=== PATIENT | female | born 1950 | race Caucasian/White ===

== ENCOUNTER 2025-09-20 15:46 | Outpatient (CLI) | payer MEDICARE, SELFPAY ==
--- NOTE | 2025-09-20 14:45 | DI.RAD_ITS ---
Exam(s) XR PELVIS AP EXAM: XR PELVIS AP CLINICAL HISTORY: THR Planning. TECHNIQUE: 2D digital imaging was performed. COMPARISON: CR XR LS SPINE 2-3 VIEWS from 06/14/2025 FINDINGS: Single AP view of the pelvis-hips reveals no evidence of fractures. Again noted is severe advanced osteoarthritic degenerative change in the right hip with [id number] narrowing and degenerative subarticular cysts in the right femoral head again noted. There also significant degenerative changes in the opposite-left hip but less than is evident on the right side. IMPRESSION: Severe osteoarthritic degenerative changes in the right hip. Moderate osteoarthritic degenerative changes in the left hip No fractures. No osseous lesions. DATA REPOSITORY: RADIATION DOSE DELIVERED:
== END 2025-09-20 15:47 | disposition home or self-care (01) ==
LOC: DIORS 15:46
PROVIDERS: PCP Family Medicine; Referring Provider Family Medicine; Visit Provider Student in an Organized Health Care Education/Training Program
DX: M16.11 Unilateral primary osteoarthritis, right hip (principal)
CPT/HCPCS: 99204; 72170

== ENCOUNTER → 2025-11-01 14:08 | Outpatient (BNVA) | payer MEDICARE, SELFPAY | PROVIDERS: PCP Family Medicine; Referring Provider Family Medicine; Visit Provider Physician Assistant | DX: Z01.818 Encounter for other preprocedural examination (principal); M16.11 Unilateral primary osteoarthritis, right hip | CPT/HCPCS: 99024 ==

== ENCOUNTER 2025-11-03 07:53 | Day surgery (SDC) | payer MEDICARE, SELFPAY ==
[2025-11-03] VITALS (29 sets, daily range): BP systolic 91–144; BP diastolic 24–62; PULSE 50–57; RESP 11–19; TEMP 36–36.6; O2SAT 93–99; BMI 37.0
[2025-11-03] MEDS: Celecoxib 200 MG CAP 400 MG PO (09:07)
[2025-11-03] MEDS: Acetaminophen 500 MG TAB 1000 MG PO (09:07)
[2025-11-03 09:09] LABS: HCT 39.1 % (36.0-46.0); HGB 13.0 g/dL (11.2-15.7); MCH 29.1 pg (27.0-33.0); MCHC 33.2 % (32.0-36.0); MCV 88 fL (80-95); MPV 10.1 fL (8.0-11.0); Platelet Count 141 10^3/uL (130-400); RBC 4.46 10^6/uL (3.93-5.22); RDW 13.5 % (11.7-14.6); RDW-SD 43.0 fL; WBC 4.45 10^3/uL (4.4-10.8)
--- NOTE | 2025-11-03 09:13 | W.ANESPRE ---
General Info Date of Service Date Performed: 11/03/25 Height: 5 ft 2 in Weight: 92 kg Body Mass Index (BMI): 37.0 Surgical Procedure: Operation Date: 11/03/25 10:50 Proposed Procedure Side Surgeon p Hip Total Hip Anterior Right Dima Justice MD Meds Allergies and Home Medications Allergies Allergy/AdvReac Type Severity Reaction Status Date / Time Penicillins Allergy URTICARIA Verified 11/03/25 08:55 Home Medication ?Medication ?Instructions ?Recorded amlodipine 2.5 mg tablet 2.5 mg PO DAILY 07/02/25 aspirin 81 mg tablet 81 mg PO DAILY 07/02/25 glipizide 10 mg tablet 10 mg PO DAILY 07/02/25 hydrochlorothiazide 25 mg tablet 25 mg PO DAILY 07/02/25 lisinopril 20 mg tablet 20 mg PO DAILY 07/02/25 lovastatin 40 mg tablet 40 mg PO DAILY 07/02/25 metformin 500 mg tablet 1,000 mg PO BID 07/02/25 metoprolol succinate 50 mg 50 mg PO DAILY 07/02/25 tablet,extended release 24 hr pantoprazole 40 mg tablet,delayed 40 mg PO DAILY 07/02/25 release semaglutide 1 mg/dose (4 mg/3 mL) 1 mg subcut QWEEK 07/02/25 subcutaneous pen injector (Ozempic) sertraline 50 mg tablet 50 mg PO DAILY 07/02/25 meloxicam 15 mg tablet 15 mg PO DAILY 11/02/25 Current Visit Medications: Current Medications Generic Name Dose Route Start Last Admin Trade Name Freq PRN Reason Stop Dose Admin Acetaminophen 1,000 mg 11/03/25 06:00 Acetaminophen 500 Mg Tab PO 11/03/25 23:59 PREOP BLAYNE Acetaminophen 1,000 mg 11/03/25 07:25 11/03/25 09:07 Acetaminophen 500 Mg Tab PO 12/03/25 07:24 1,000 mg TID PRN PRN Administration Analgesia Celecoxib 400 mg 11/03/25 06:00 11/03/25 09:07 Celecoxib 200 Mg Cap PO 11/03/25 23:59 400 mg PREOP BLAYNE Administration Docusate Sodium 100 mg 11/03/25 07:25 Docusate Sodium 100 Mg Cap PO 12/03/25 07:24 BID PRN PRN Constipation Ringer's Solution 1,000 mls @ 80 mls/hr 11/03/25 06:00 IV 11/03/25 23:59 INFUSION BLAYNE Cefazolin Sodium/Dextrose 2 gm in 50 mls @ 100 mls/hr 11/03/25 06:00 Ancef Duplex IVPB 11/03/25 23:59 PREOP BLAYNE Tranexamic Acid/Sodium Chloride 1,000 mg in 100 mls @ 600 mls/hr 11/03/25 06:00 IVPB 11/03/25 23:59 PREOP BLAYNE Ondansetron HCl 4 mg 11/03/25 07:25 Ondansetron 4 Mg/2 Ml Vial IVP 12/03/25 07:24 Q6H PRN PRN Nausea Oxycodone HCl 0 mg 11/03/25 07:25 Oxycodone 5 Mg Tab PO 12/03/25 07:24 Q3H PRN PRN Pain Polyethylene Glycol 17 gm 11/03/25 07:25 Polyethylene Glycol 3350 17 Gm Packet PO 12/03/25 07:24 BID PRN PRN Constipation Sodium Chloride 0 ml 11/03/25 06:00 Normal Saline Flush 10 Ml Syr IV 11/03/25 23:59 PRN PRN Sodium Chloride 0 ml 11/03/25 06:00 Normal Saline 10 Ml Vial IJ 11/03/25 23:59 DIRECTED PRN Sterile Water 0 ml 11/03/25 06:00 Water,Injection,Sterile 10 Ml Vial IJ 11/03/25 23:59 DIRECTED PRN PFSH Active Problems Active Problems: Problem Status Onset Code History of total right hip replacement Acute Z96.641 Type 2 diabetes mellitus Acute E11.9 YOGESH (obstructive sleep apnea) Chronic G47.33 Obesity Chronic E66.9 Nicotine dependence Acute F17.200 Mixed hyperlipidemia Acute E78.2 GERD (gastroesophageal reflux disease) Chronic K21.9 Depressive disorder Chronic F32.A Benign essential hypertension Acute I10 Arteriosclerotic vascular disease Acute I70.90 Surgical History Surgical History (Updated 11/03/25 @ 08:36 by Brianne Marte RN) History of cataract extraction History of bladder suspension procedure History of tonsillectomy History of appendectomy History of total hysterectomy History of left breast biopsy Tobacco Smoking/Tobacco Use Status: Current every day Tobacco Type: e-cigarettes Passive smoking exposure: Yes Alcohol Alcohol Intake: current Alcohol intake frequency: holidays/special occasions only Substance Use Substance use: Never Substance use type: does not use Details: 11/03/25: vaped this morning Vital Signs and Lab Results Vital Signs Most Recent Vital Signs in EMR: Most Recent Vital Signs Temp Pulse Resp BP Pulse Ox 36 C L 54 L 14 144/62 H 98 11/03/25 08:46 11/03/25 08:46 11/03/25 08:46 11/03/25 08:46 11/03/25 08:46 Lab Results 11/03/25 08:50 Complete Blood Count: WBC, (4.4-10.8) 4.45 10^3/uL Today, 08:50 RBC, (3.93-5.22) 4.46 10^6/uL Today, 08:50 Hgb, (11.2-15.7) 13.0 g/dL Today, 08:50 Hct, (36.0-46.0) 39.1 % Today, 08:50 Plt Count, (130-400) 141 10^3/uL Today, 08:50 Complete Metabolic Panel: Sodium, (136-145) 140 mmol/L Today, 08:50 Potassium, (3.5-5.1) 3.9 mmol/L Today, 08:50 Chloride, (98-107) 104 mmol/L Today, 08:50 Carbon Dioxide, (20.0-31.0) 25.3 mmol/L Today, 08:50 BUN, (9-23) 18 mg/dL Today, 08:50 Creatinine, (0.55-1.02) 0.98 mg/dL Today, 08:50 Est GFR (CKD-EPI 2020), (mL/min/1.73m2) 54.97 Today, 08:50 Calcium, (8.3-10.6) 8.9 mg/dL Today, 08:50 Glucose, (74-106) 161 mg/dL H Today, 08:50 Hemoglobin A1c, (<5.7) 7.0 % H Today, 08:50 Imaging and Studies Imaging and Studies Study information below may be from another EMR and interpreted by another provider. Please see original notes in EMR for more complete details. EKG Summary: 10/29/25 SR rate 62 Anesthesia Assessment and Plan Anesthesia History Personal History: No History of Anesthesia Complications Family History: No Family History of Anesthesia Complications Exercise Tolerance Exercise Tolerance: Metabolic Equivalents<4 Pertinent Negatives Pertinent Negatives: No Symptoms of GERD, No Major Cardiovascular Symptoms or Complaints, No Major Pulmonary Symptoms or Complaints and No History of CVA/TIA Cardiac & Pulmonary Exam Cardiac Exam: Normal S1/S2 Heart Sounds Pulmonary Exam: Clear Bilateral Breath Sounds Cardiac and Pulmonary Comment:: YOGESH with CPAP Implantable Cardiac Device Does patient have a Pacemaker or an ICD?: No Airway Exam Known Difficult Airway: No Mallampati Class: 4 Mouth Opening: Normal (> 3cm) Thyromental Distance: Less than 3 cm Neck Range of Motion: Full ROM Neck Circumference: Thick Teeth Condition: Edentulous (upper plate at home) ASA Classification ASA Score: ASA 3 Emergency Case?: No NPO Status NPO Status: NPO Clears >2 hours, Solids >8 hours Anesthesia Plan Resuscitation Status: Full Code Anesthesia Technique: General Anesthesia Airway Planned: Endotracheal Tube Monitors Used: Standard Monitors
[2025-11-03 09:26] LABS: Hemoglobin A1C 7.0 % (<5.7)
[2025-11-03] MEDS: Lactated Ringers 1,000 ML 80 ML IV (09:29)
[2025-11-03 09:31] LABS: Anion Gap 10.7 mmol/L (3-11); BUN 18 mg/dL (9-23); CO2 25.3 mmol/L (20.0-31.0); Calcium 8.9 mg/dL (8.3-10.6); Chloride 104 mmol/L (98-107); Glucose 161 mg/dL (74-106); Potassium 3.9 mmol/L (3.5-5.1); Sodium 140 mmol/L (136-145)
[2025-11-03] MEDS: ceFAZolin 2 GM/50 ML BAG IVPB (10:24)
[2025-11-03] MEDS: TRANEXAMIC ACID/SOD. CHL. 1,000 MG/100 ML BAG 600 MG IVPB (10:44)
[2025-11-03] MEDS: ROPIvacaine/EPI/CLONIDINE/KET 50 ML SYRINGE IJ (10:57)
--- NOTE | 2025-11-03 11:45 | DI.RAD_ITS ---
Exam(s) XR HIP RT IN OR EXAM: XR HIP RT IN OR CLINICAL HISTORY: RIGHT HIP OA. TECHNIQUE: 2D and realtime digital imaging was performed. COMPARISON: CR XR PELVIS AP from 09/20/2025 FINDINGS: Hard copy images show placement of a right hip prosthesis. The alignment appears satisfactory. Please see procedure note for details. Fluoro time: 27.9seconds RADIATION DOSE DELIVERED: Ka,r=4.5 mGy
--- NOTE | 2025-11-03 12:00 | W.PM.OP ---
Operative Note Operative Note PRE-OP DIAGNOSIS: Right Hip Osteoarthritis POST-OP DIAGNOSIS: same PROCEDURE: Right Anterior Total Hip Arthroplasty with Intraoperative Navigation SURGEON: Dima Justice MINE INSPECTOR FED[employer]AL: Joseph Rodriguez ANESTHESIA TYPE: Spinal Refer to Anesthesia Record ESTIMATED BLOOD LOSS: 150 PATHOLOGY: none sent TOURNIQUET TIME: 0 COMPLICATIONS: None Patient was transported to: PACU Patient's condition: stable Implants: 1. Depuy [place] Acetabular Component, 54mm 2. Depuy Acetabular Liner, [id number] 3. Depuy Actis High Offset Collared Femoral Stem, Size 4 4. Depuy Altrx Ceramic Femoral Head, Size 36+1.5mm Indications: I have seen Chela in clinic for symptoms of hip arthritis, confirmed with radiographic findings. She has exhausted nonoperative methods and was having significant limitations in daily function and desired better function and less pain. I discussed the technical details of a hip replacement. I explained the risks of the procedure to include, but not limited to, bleeding, infection, pain, stiffness, fracture, damage to nerves and vessels, damage to muscles and tendons, loosening, instability, leg length inequality, need for repeat procedure, blood clot and cardiopulmonary demise. Despite these risks, Chela elected to proceed. Findings: There was significant signs of arthritis throughout the hip with large osteophytes and synovitis. Procedure Description: Chela was greeted in the preoperative holding area where the correct side was identified and marked. The consent was reviewed with the patient and signed. The history and physical was updated. All questions were answered. She was taken back to the operating room. A spinal anesthestic was then administered. The feet were wrapped with cast padding and Coban and then placed into the boot liners and then into the boots. Care was taken to protect the skin and make sure the heels were fully down and the boots were stable. The patient was then positioned onto the HANA table. Both legs were held in a neutral position. SCDs were applied. The patient was then slid down onto a peroneal post. Prophylactic antibiotics in the form of Cefazolin were administered. 1g of Tranxemic Acid was given intravenously within 30 minutes of incision. The right leg was then prepped with Chloraprep and draped in a standard fashion. A second prep with Chloraprep was performed prior to placement of a shower-curtain type drape with Iodine impregnated skin protection. A timeout to confirm correct identity, side and site, procedure, allergies, anesthesia, and medical concerns was performed. An obliquely oriented incision was made starting lateral to the ASIS and running distal over the Tensor Fascia Yusra (TFL) muscle belly toward the fibular head, approximately 10cm. The skin and soft tissue was dissected sharply, through Ricardo?s fascia, and to the fascia of the TFL. With the fascia and superior border of the IT band identified, the fascia was incised with a new knife just above any perforators from the IT band. The TFL muscle belly was bluntly dissected away from the fascia and moved laterally. The fat between TFL and rectus was identified to ensure the dissection was not within the TFL. Blunt dissection created space between abductors and the capsule and retractor was placed over the lateral femoral neck. The fibers of the rectus femoris tendon were identified and these were freed from the anterior capsule. A second cobra retractor was placed around the medial femoral neck. The TFL was further retracted laterally to show the deep fascia. Careful dissection through this layer identified three main crossing vessels of the lateral femoral circumflex. These were cauterized in multiple locations and then cut without any noticeable bleeding. The TFL was further released bluntly from the deep fascia to expose anterior hip capsule and fat The soft tissue orthopaedic retractor was then placed beneath the TFL and against sartorius and medial soft tissues to protect and retract the soft tissues. A T-capsulotomy was then performed starting at the superior lateral acetabulum and moving distally to the intertrochanteric ridge. These capsular flaps were tagged with a No. 1 Vicryl and elevated from within. The capsular flaps were released to the shoulder of the lateral neck and to the lesser trochanter to give excellent visualization of the proximal femur. A neck osteotomy was performed using an oscillating saw based on preoperative templates. Osteophytes about the neck were also removed prior to making the cut. This cut started in the shoulder and of the lateral neck and exited medially. The saw was at all times directed medially to avoid injury to the greater trochanter. Gross traction was applied to the leg and the osteotomy opened. The femoral head was removed with a corkscrew, making sure to protect the TFL on its exit. Traction was released after head removal. This was measured on the back table to determine the starting reamer size. Portions of the rectus obscuring visualization were minimally elevated off the superior acetabulum. An anterior retractor was placed over the anterior wall between capsule and labrum and attached to the Gripper retraction system. The femur was rotated to 90 degrees and medial capsule was fully released until the lesser trochanter was palpable and visible; the femur was returned to 30 degrees. A posterior retractor was placed similarly between capsule and labrum. This provided excellent visualization. The contents of the cotyloid fossa were removed with electrocautery and the labrum was removed with a knife. There was a notable floor osteophyte. There was significant chondromalacia of the superior acetabulum. There was significant synovitis within the hip which was also resected. Acetabular reaming began with a 48mm reamer. This first reaming was directed anterior to posterior and medial to get down to the true floor. This was inspected and reamed until the true floor was reached. The anterior retractor was then released and entry and exit was provided by traction on the capsular flaps. I then reamed sequentially up to a 54mm reamer where good fit was obtained. The larger reamers were oriented based on anatomical reference of the anterior and lateral grimaldo to ensure proper abduction and anteversion. Positioning and size was confirmed with the fluoroscopy. A 54mm Depuy [place] acetabular component was selected. The acetabulum was reamed around the periphery with the selected acetabular size to prevent a rim fit. The deep tissues were irrigated. The acetabular component was then impacted in a position of about 40-45 degrees of abduction and 15-20 degrees of anteversion, using the patient?s anatomy as the ultimate landmark. Fluoroscopy was used to confirm this. There was excellent bulk station agent of the acetabular component and the inserting handle was removed. The acetabular liner, Depuy [id number] polyethylene liner, was inserted and lined up with the tines of the acetabular component. There was no soft tissue interposition. The liner was then impacted into position and confirmed to be well-seated. A portion of the janet-articular cocktail was then injected around the acetabulum into the capsule and periosteum. This cocktail consisted of 123mg of Ropivacaine, 0.25mg of Epinephrine, 0.04mg of Clonidine, and 15mg of Ketorolac, diluted to 50cc. The leg was rotated to 120 degrees. Any remaining medial capsule was released until the lesser trochanter was easily palpable. A retractor was placed medially. The lateral capsule was further released into the shoulder to allow access to the greater trochanter. A Weir retractor was placed over the greater trochanter which allowed the trochanter to flip in front of the capsule for excellent exposure. The leg was brought down into maximal extension and 20 degrees of adduction while ensuring there was no impingement on the acetabulum. Any remnant capsule within the trochanter was released. Piriformis and obturator externis were identified and protected. There was excellent access to the proximal femur. The lateral neck remnant was removed with a rongeur. A blunt canal probe was used to identify the canal and trajectory for later broaching. A box osteotome initiated the broach course. A small curved rasp and a curved curette were used to work laterally. Broaching then began with a starter Actis broach. This was inserted manually around the trochanter and into the canal before mallet blows. The broach was seated to a few millimeters below the cut level based on the neck cut and the preoperative template. Sequential broaching was continued with the Empathicase pneumatic broaching device until a tight fit was obtained with good rotational control of the femur. A trial high offset neck was inserted along with a +1.5 trial head. The leg was brought out of extension and adduction and then reduced with traction and internal rotation. The leg was stable anteriorly in a position of 30 degrees of extension and 90 degrees of external rotation. Fluoroscopy was used to ensure there was no fracture and the stem was seated well. Leg lengths were checked with an AP pelvis and pelvic reference points. Exploredge navigation system was used to confirm appropriate positioning and leg length and offset. Once content with the desired offset and leg lengths, the leg was brought back into extension, external rotation and adduction. The periosteum and surrounding tissue was injected with remaining portion of the janet-articular cocktail. The proximal femur was irrigated as well as the deep tissues. The Depuy Actis High Offset collared stem, size 4, was then manually inserted into the proximal femur making sure to control rotation. It was then malleted into position with light blows, giving breaks to allow bone expansion and decrease risk of fracture. The selected Depuy Altrx Ceramic Head, size 36+1.5mm, was then placed onto the clean and dry trunnion and secured with impaction onto the tapered fit. The leg was brought back out of extension and adduction and reduced with traction and internal rotation. Stability was confirmed with no shuck at 90 degrees of external rotation and 30 degrees of extension. No impingement through range of motion arc. Final x-ray images were obtained with fluoroscopy to confirm adequate positioning and no intraoperative fracture. The deep tissues were thoroughly irrigated with Surgiphor, betadine solution. This was allowed to sit in the wound for 3 minutes before being thoroughly irrigated out with normal saline. The capsule was then reapproximated with the previously placed sutures. The TFL fascia was finally closed with a No. 2 Stratafix, barbed suture. Deep tissues were then reapproximated with 0 Vicryl and a running 2-0 Vicryl. The skin was closed with a running 4-0 Monocryl in a subcuticular fashion. This was reinforced with skin glue. A Mepilex silver dressing was applied. At the end of the case, all counts were correct. Chela was transferred to the hospital bed without difficulty and suffering no apparent complication. She has a good prognosis. Physical therapy will start today and without restrictions, weight-bearing as tolerated. Aspirin 81mg BID will be used for DVT prophylaxis. Date of Procedure: 11/03/25
[2025-11-03] MEDS: HYDROmorphone 2 MG/ML SYR IVP (12:29)
[2025-11-03] MEDS: Tranexamic Acid 650 MG TAB 1300 MG PO (13:59)
[2025-11-03] MEDS: oxyCODONE 5 MG TAB PO (14:02)
--- NOTE | 2025-11-03 14:09 | W.ANESPOSTOP ---
Postoperative Evaluation Date, Time and Location Date Performed: 11/03/25 Time Performed: 14:09 Patient Location: Day Surgery Unit Vital Signs Most Recent Imported Vital Signs: Most Recent Vital Signs Temp Pulse Resp BP Pulse Ox 36.1 C L 57 L 16 114/51 L 96 11/03/25 13:44 11/03/25 13:44 11/03/25 13:44 11/03/25 13:44 11/03/25 13:44 Pain Score Most Recent Pain Score: Most Recent Pain Score Pain Level 6 11/03/25 13:44 Assessment Mental Status: Awake (Alert & Oriented to Patient Baseline) Airway and Respiratory Function: Patent airway with normal (patient baseline) respiratory exam Cardiovascular Function: Hemodynamically Stable Hydration Status: Adequately Hydrated Nausea & Vomiting: No Nausea or Vomiting Pain: Pain is Moderate or Severe Postoperative Pain Management: Pain being addressed with medication Peripheral Nerve Block: Patient did not receive a nerve block
--- NOTE | 2025-11-03 14:35 | IN_ITS ---
PT Notes ? Physical Therapy Day Surgery Initial Evaluation Date: 11/03/2025 Referring Doctor: Joseph MCFARLAND PT Orders: PT CONSULT: Day surgery eval Precautions: RTHA, standard, fall, WBAT Patient Profile/Admitting Diagnosis: Pt is a 75-year-old female who had a RTHA due to OA under general anesthesia PMHX: Osteoarthritis of right hip (Acute) Type 2 diabetes mellitus (Acute) YOGESH (obstructive sleep apnea) (Chronic) Obesity (Chronic) Nicotine dependence (Acute) Mixed hyperlipidemia (Acute) GERD (gastroesophageal reflux disease) (Chronic) Depressive disorder (Chronic) Benign essential hypertension (Acute) Arteriosclerotic vascular disease (Acute) Surgical History (Updated 07/02/25 @ 11:20 by Brianne Marte RN) History of cataract extraction History of bladder suspension procedure History of tonsillectomy History of appendectomy History of total hysterectomy History of left breast biopsy Social History/Home Situation: Pt lives in single family home. Pt has 4 RALPH with a railing on both sides. Pt was using a cane prior to surgery. Equipment Owned/DME: single point cane, FWW Subjective: Pt reported feeling well. During bed mobility pt reported feeling dizzy, and a little nausea. Objective: General Observation: Pt laying in bed with ice bag on R hip with daughter in law present in the room Mental Status: Alert and oriented x4. Pt sometimes needs extra time to process commands. Pain: 6/10 in R lateral hip laying in bed and during ambulation ROM: Right Upper Extremity: Grossly WFL Left Upper Extremity: Grossly WFL Right Lower Extremity: Grossly WFL, reduced hip flexion, 90degrees in sitting EOB Left Lower Extremity: Grossly WFL Strength: Right Upper Extremity: Grossly -4/5 Left Upper Extremity: Grossly -4/5 Right Lower Extremity: Grossly -4/5, Hip flex 3/5 Left Lower Extremity: Grossly -4/5 Sensation: intact Bed Mobility/Transfers: Supine to sit Min A of 1 Sit to stand CGA of 1 FWW cues for hands Stand to sit CGA of 1 FWW cues hands Bed to chair CGA of 1 FWW Gait: Pt ambulated 15 feet FWW CGA followed behind with chair. Balance: Static Sitting: good Dynamic Sitting: good Static Standing: good Dynamic Standing: fair UE support Special Tests: Mobility Limitations Standardized Measure [] [facility] AM-PAC 6 clicks Basic Mobility Inpatient Short Form: [] Raw Score: 17? CMS Score: 50.57% deficit Informed Consent/Education:? Patient instructed in purpose of PT consult.? Packet containing ISATU exercise protocol has been given to patient.? Education and training on initial set of exercises that can be done at home have been completed with patient. Therapeutic activity: Sit to stand from toilet: SBA with verbal cues for hand placement. Ambulation: Pt ambulated 150 feet SBA with FWW reciprocal walking pattern. PT provided verbal cues for directions and to decrease speed to increase stability and proper AD use for performing a reciprocal walking pattern. PT also provided verbal and tactile facilitation for proper approach to the toilet and how to position the FWW so it?s accessible but not in the way. Stairs: Pt performed 2 6inch steps and 3 4inch steps with CGA, railings on both sides. PT provided verbal cueing for proper foot sequence and hand placement. Exercises: RLE Quad contraction: [id number] no lag Glute contraction: [id number] Heel slides: [id number] LAQ: [id number] Assessment: ? Pt felt well in the first session. However, once they moved to the EOB they felt a little dizzy. Pt was able to stand and ambulate about 15feet FWW CGA. DPTS had the pt sit down, and they showed excessive sway, and looked exhausted. Nursing was made aware and vitals were taken. Pt started falling asleep as vitals were being taken. PT decided pt should have some time and rest. PT came back sometime later and Pt was while awake talkative and had no dizziness. Pt was able to perform the stairs CGA. Pt was able to perform a reciprocal walking pattern and needed mild cueing for FWW placement and foot sequence. Pt pain has decreased significantly. Pt heard the surgeon speaking and almost walked without the walker to go say thank you to him, as she was appreciative of all he?s done for her. Pt will perform her HEP until follow up appointment with surgeon. If the pt still has deficits then she would benefit from skilled PT. Patient presents with clinical signs and symptoms consistent with current/admitting diagnoses that have resulted to mobility limitations, gait instability, generalized weakness, and impairment of motor control as demonstrated by the following impairment level findings: 1.? Decreased strength to right hip major muscle groups 2.? Impaired standing balance 3.? Limitation of joint range of motion in right hip 4. Pain 5. Activity tolerance. Impairments are contributing to the following functional limitations: 1.? Inability to safely ambulate without assistive device 2.? Increase completion time for mobility ADL performance 3.? Increased fall risk 4. difficulty managing steps alone Patient is assessed as a Moderate complexity based on the following: History: 75-year-old female with impairment level findings, functional limit ations, and past medical history as indicated above Examination: Demonstrable impairment in strength, balance, and mobility level with underlying impairments and functional limitations as documented above Presentation: stable but evolving Decision Making: moderate Goals: N/A.? PT evaluation and 1-2 treatment sessions only for functional mobility training using recommended AD and for HEP instruction. Plan of Care/Treatment Plan: N/A.? PT evaluation and 1-2 treatment session only for functional mobility training using recommended AD and for HEP instruction. DISCHARGE RECOMMENDATIONS: Home with HEP until follow up appointment with surgeon. TREATMENT CODE/TIME: 91676,39542/1:58PM-2:25PM, 3:05PM-3:28PM Thank you for the opportunity to participate in the care of this patient. Written by Sarabjit Mooney DPTS Supervised by: Karmen Gregg PT ? [facility]
--- NOTE | 2025-11-03 15:21 | PDOC.DSDIS_ITS ---
Date of service: 11/03/25 Discharge Plan Disposition Patient Disposition: Home Condition: Good Discharge Details Reason For Visit: R THR Attending Provider: Dima Justice Primary Care Provider: Abdirizak Rothman Home Meds and New Rx's Prescriptions: New celecoxib 200 mg capsule 200 mg PO BID Qty: 60 0RF aspirin 81 mg tablet,delayed release (DR/EC) 81 mg PO BID Qty: 60 0RF acetaminophen 500 mg tablet 1,000 mg PO TID Qty: 90 3RF docusate sodium 100 mg capsule 100 mg PO BID PRNQty: 28 0RF oxycodone 5 mg tablet 5 mg PO Q4H MDD 6 tabs PRN (Reason: pain) Qty: 12 0RF Continued metformin 500 mg tablet 1,000 mg PO BID metoprolol succinate 50 mg tablet extended release 24 hr 50 mg PO DAILY lisinopril 20 mg tablet 20 mg PO DAILY glipizide 10 mg tablet 10 mg PO DAILY lovastatin 40 mg tablet 40 mg PO DAILY amlodipine 2.5 mg tablet 2.5 mg PO DAILY pantoprazole 40 mg tablet,delayed release (DR/EC) 40 mg PO DAILY hydrochlorothiazide 25 mg tablet 25 mg PO DAILY sertraline 50 mg tablet 50 mg PO DAILY Ozempic 1 mg/dose (4 mg/3 mL) pen injector 1 mg subcut QWEEK Discontinued aspirin 81 mg tablet 81 mg PO DAILY meloxicam 15 mg tablet 15 mg PO DAILY Patient Comments: TAKE 1 TABLET BY MOUTH ONCE DAILY SHOULD NOT BE TAKEN WITH ANY IBUPROFEN, ALEVE, ETC. Discharge Instructions Additional Instructions: Total Hip Discharge Instructions Activity: The most important activity is to walk. You should try to take short walks a few times a day. You have no restrictions on movement or positioning, but do not try to force what you do. You will find some stiffness and weakness with hip flexion (lifting your knee). Do not try to strengthen this too early, continue to practice walking and stairs and this will come. - Outpatient physical therapy can be helpful to help return you to a normal gait and improve your flexibility and strength. This can start around 2 weeks. For some patients, it?s not necessary. Usually this is determined at the time of discharge or at the first post-operative visit. - You should wear the BEAR hose on both legs for 2 weeks. Dressing: Keep the surgical dressing in place for at least one week. After the first week it may be removed and replace with light gauze and tape or nothing. It may get wet after 3 days but avoid soaking the dressing. If it gets wet, just lightly pat dry. It is important to always keep some gauze between skin folds, especially when you are sitting. Spend some time with the wound exposed when you are lying flat as the incision does wrinkle onto itself. Medications: - You should take Tylenol and an anti-inflammatory Celebrex as your primary pain control medications. If the Celebrex is too expensive or not covered, please call the office for another alternative (Advil/Ibuprofen or Naproxen/Aleve). - You have been prescribed a stronger pain medication Oxycodone for breakthrough pain, take as needed as prescribed. - You will continue your Pantoprozole to help reduce stomach acid and reflux. - You will be taking Aspirin 81mg twice a day for DVT prevention unless instructed otherwise. - If you have constipation you should take Colace or Miralax (both over-the-co unter). It takes most people 3-4 days to have a bowel movement. Follow-up: 2 weeks If you have any acute concerns or questions, please do not hesitate to contact the office at [phone]. You may contact Dr. Justice with any questions after hours through the hospital at [phone] or on his cell phone at [phone]. Stand Alone Forms: Anesthesia Discharge Inst., Bruce Patel ([facility]), Portal Information Referrals: Dima Justice MD [ [facility] STAFF PHYSICIAN, Orthopaedic Surgical] - 11/15/25 1:30 pm Equipment/Supplies: Walker Activity:: Activity as Tolerated Shower/Bathe:: 72 hours Diet:: As Tolerated Discharge Orders Discharge Orders: Discharge Order (Routine); Ordered 11/03/25 Ordered By: Joseph Rodriguez DS: Diagnosis Discharge Diagnosis (1) History of total right hip replacement: Status: Acute
== END 2025-11-03 16:05 | disposition home or self-care (01) ==
PROVIDERS: PCP Family Medicine; Visit Provider Student in an Organized Health Care Education/Training Program
PROC: (CPT 27130; principal; 2025-11-03 10:30)
DX: M16.11 Unilateral primary osteoarthritis, right hip (principal); E11.9 Type 2 diabetes mellitus without complications
CPT/HCPCS: 20985; 27130; 36415; 80048; 85027; 97162; 97530; 73501; 83036; C1776; J0360; J0690; J1100; J1171; J2003; J2405; J2704; J3010

== ENCOUNTER 2025-11-15 15:50 | Outpatient (CLI) | payer MEDICARE, SELFPAY ==
--- NOTE | 2025-11-15 13:00 | DI.RAD_ITS ---
Exam(s) XR HIP RT COMPLETE AP PELVIS EXAM: XR HIP RT COMPLETE AP PELVIS CLINICAL HISTORY: 1ST POST OP S/P R ISATU. TECHNIQUE: 2D digital imaging was performed. COMPARISON: X-rays of 09/20/2025 FINDINGS: Two views There has been recent placement of a right hip prosthesis on 11/03/2025. Prosthesis components appear well seated. No fracture or loosening. No evidence of osteomyelitis. Significant degenerative change again noted in the opposite-left hip. IMPRESSION: Satisfactory appearance of the recently placed prosthesis DATA REPOSITORY: RADIATION DOSE DELIVERED:
== END 2025-11-15 15:51 | disposition home or self-care (01) ==
LOC: DIORS 15:50
PROVIDERS: PCP Family Medicine; Visit Provider Student in an Organized Health Care Education/Training Program
DX: Z47.1 Aftercare following joint replacement surgery (principal); Z96.641 Presence of right artificial hip joint
CPT/HCPCS: 99024; 73502